=== PATIENT | female | born 1950 ===

== ENCOUNTER → 2017-12-12 18:39 | Outpatient (REF) | payer MEDICARE, SELFPAY ==
[2017-12-12 18:56] LABS: Hematocrit 40.1 % (36-46); Hemoglobin 13.2 g/dL (12.0-16.0)
[2017-12-12 19:37] LABS: Ferritin 10.8 ng/mL (11.1-264)
== END ==
LOC: LAB 18:39
PROVIDERS: Visit Provider Family Medicine
DX: D64.9 Anemia, unspecified (principal)
CPT/HCPCS: 82728; 85014; 85018

== ENCOUNTER → 2018-05-31 19:27 | Outpatient (REF) | payer MEDICARE, SELFPAY ==
[2018-05-31 19:40] LABS: Add Manual Diff / Slide Review NO; Basophils Absolute Auto 100 /uL (0-100); Eosinophils Absolute Auto 0 /uL (0-450); Eosinophils Percent Auto 0.4 % (2-4); Hematocrit 42.1 % (36-46); Hemoglobin 13.7 g/dL (12.0-16.0); Lymphocytes Absolute Auto 2100 /uL (1100-4500); Mean Corpuscular HGB Conc 32.5 % (30-36); Mean Corpuscular Hemoglobin 29.3 PG (26-34); Mean Corpuscular Volume 90.1 fL (80-100); Monocytes Absolute Auto 400 /uL (0-900); Monocytes Percent Auto 4.8 % (3-14); Neutrophils Absolute Auto 5800 /uL (1500-7000); Neutrophils Percent Auto 68.8 % (50-75); Platelet Count 267 X10^3/uL (150-400); Red Blood Cell Count 4.67 X10^6/uL (4.0-5.2); Red Cell Distribution Width 16.3 % (11.6-14.8); White Blood Cell Count 8.4 X10^3/uL (4.5-11.0)
[2018-05-31 20:19] LABS: Ferritin 36.7 ng/mL (11.1-264)
== END ==
LOC: LAB 19:27
PROVIDERS: Visit Provider Family Medicine
DX: D64.9 Anemia, unspecified (principal)
CPT/HCPCS: 36415; 82728; 85025